=== PATIENT | male | born 2000 | race Caucasian/White ===

== ENCOUNTER 2023-10-31 23:49 | Observation (INO) | payer BC, OTHER ==
--- NOTE | 2023-11-01 00:19 | ED ---
Chest Pain HPI - General Chief Complaint: Chest Pain Stated Complaint: Chest Pain Time Seen by Provider: 11/01/23 00:17 Source: patient, RN notes reviewed Mode of arrival: ambulatory Limitations: no limitations - History of Present Illness Initial Comments: 23-year-old male with no significant past medical history presenting to the ER with chief complaint of chest pain x 1 hour. Patient describes pain as sharp and right sided. States pain came on suddenly. Pain is worse with deep inspiration. He has never had the symptoms before. Denies trauma or injury. Denies cough, nasal congestion, flulike symptoms. Denies family history of cardiac conditions. States he had an episode of syncope many years ago. - Related Data Allergies Allergy/AdvReac Type Severity Reaction Status Date / Time No Known Allergies Allergy Verified 10/31/23 23:54 Review of Systems ROS Statement: Those systems with pertinent positive or pertinent negative responses have been documented in the HPI. ROS Other: All systems not noted in ROS Statement are negative. EKG Findings - EKG Results: EKG: interpreted by MILTON (EKG reveals normal sinus rhythm with right bundle branch block and nonspecific ST changes in V2. Ventricular rate 95 bpm, CA interval 139, QRS duration 114, QT/QTc 345/397) Past Medical History Past Medical History: No Reported History History of Any Multi-Drug Resistant Organisms: None Reported Additional Past Surgical History / Comment(s): ear Past Psychological History: No Psychological Hx Reported Smoking Status: Vaper Past Alcohol Use History: Occasional Past Drug Use History: None Reported General Exam Limitations: no limitations General appearance: alert, in no apparent distress Head exam: Present: atraumatic, normocephalic, normal inspection Respiratory exam: Present: normal lung sounds bilaterally. Absent: respiratory distress, wheezes, rales, rhonchi, stridor, chest wall tenderness Cardiovascular Exam: Present: regular rate, normal rhythm, normal heart sounds. Absent: systolic murmur, diastolic murmur, rubs, gallop, clicks GI/Abdominal exam: Present: soft, normal bowel sounds. Absent: distended, tenderness, guarding, rebound, rigid Neurological exam: Present: alert, oriented X3 Psychiatric exam: Present: normal affect, normal mood Skin exam: Present: warm, dry, intact, normal color. Absent: rash Course Vital Signs 10/31/23 11/01/23 11/01/23 23:50 00:54 02:00 Temperature 97.3 F L Pulse Rate 96 86 73 Respiratory 15 17 17 Rate Blood Pressure 145/95 139/86 132/87 O2 Sat by Pulse 95 96 97 Oximetry Chest Pain MDM - MDM Was pt. sent in by a medical professional or institution (, [facility], [employer] MEMBER, urgent care, hospital, or skilled nursing...) When possible be specific @ -No Did you speak to anyone other than the patient for history (EMS, parent, family, police, friend...)? What history was obtained from this source @ -No Did you review nursing and triage notes (agree or disagree)? Why? @ -I reviewed and agree with nursing and triage notes Were old charts reviewed (outside hosp., previous admission, EMS record, old EKG, old radiological studies, urgent care reports/EKG's, skilled nursing records)? Report findings @ -No old charts were reviewed Differential Diagnosis (chest pain, altered mental status, abdominal pain women, abdominal pain men, vaginal bleeding, weakness, fever, dyspnea, syncope, headache, dizziness, GI bleed, back pain, seizure, CVA, palpatations, mental health, musculoskeletal)? @ -Differential Chest Pain: Stable Angina, Unstable Angina, STEMI, NSTEMI Aortic Dissection, Pneumothorax, Musculoskeletal, Esophageal Spasm GERD, Cholecystitis, Pancreatitis, Zoster, this is not meant to be an all-inclusive list. EKG interpreted by me (3pts min.). @ -As above X-rays interpreted by me (1pt min.). @ -Chest x-ray revealed no acute process CT interpreted by me (1pt min.). @ -None done U/S interpreted by me (1pt. min.). @ -None done What testing was considered but not performed or refused? (CT, X-rays, U/S, labs)? Why? @ -None What meds were considered but not given or refused? Why? @ -None Did you discuss the management of the patient with other professionals (professionals i.e. MARYANN Mack, [employer] MEMBER, lab, RT, psych nurse, social media project manager, plant floor automation manager, teacher, founder and chief technical officer, case briefer)? Give summary @ -No Was smoking cessation discussed for >3mins.? @ -No Was critical care preformed (if so, how long)? @ -No Were there social determinants of health that impacted care today? How? (Homelessness, low income, unemployed, alcoholism, drug addiction, transportation, low edu. Level, literacy, decrease access to med. care, fpc, rehab)? @ -No Was there de-escalation of care discussed even if they declined (Discuss DNR or withdrawal of care, Hospice)? DNR status @ -No What co-morbidities impacted this encounter? (DM, HTN, Smoking, COPD, CAD, Cancer, CVA, ARF, Chemo, Hep., AIDS, mental health diagnosis, sleep apnea, morbid obesity)? @ -None Was patient admitted / discharged? Hospital course, mention meds given and route, prescriptions, significant lab abnormalities, going to OR and other pertinent info. @ -Patient was admitted. This is a 23-year-old male presenting with sudden onset right-sided chest pain 1 hour prior to arrival. No cardiac risk factors. Vital signs within normal limits. Heart and lung sounds clear to auscultation bilaterally. No reproducible tenderness. Patient was given loading dose of aspirin. EKG revealed normal sinus rhythm with right bundle branch block and nonspecific ST changes in V2. Chest x-ray revealed no acute process. Lab work including CBC, CMP, coags, troponin are unremarkable. Repeat troponin pending. Discussed findings with patient including abnormal EKG. Patient admitted to observation for cardiology consultation. Patient is agreeable to plan. Case was discussed with my ED attending Dr. Pyle. Undiagnosed new problem with uncertain prognosis? @ -No Drug Therapy requiring intensive monitoring for toxicity (Heparin, Nitro, Insulin, Cardizem)? @ -No Were any procedures done? @ -No Diagnosis/symptom? @ -Chest pain Acute, or Chronic, or Acute on Chronic? @ -Acute Uncomplicated (without systemic symptoms) or Complicated (systemic symptoms)? @ -Uncomplicated Side effects of treatment? @ -No Exacerbation, Progression, or Severe Exacerbation? @ -No Poses a threat to life or bodily function? How? (Chest pain, USA, CA, pneumonia, PE, COPD, DKA, ARF, appy, cholecystitis, CVA, Diverticulitis, Homicidal, Suicidal, threat to staff... and all critical care pts) @ -Yes, chest pain Disposition Clinical Impression: Chest pain, Abnormal EKG Disposition: ADMITTED IP TO THIS HOSP Referrals: Alonzo Jefferson [Primary Care Provider] - 1-2 days Time of Disposition: 03:31
[2023-11-01] MEDS: ASPIRIN 81 MG PO STA (00:28)
[2023-11-01 00:31] LABS: Basophils % (A) 1 %; Eosinophils % (A) 1 %; HCT 46.7 % (39.0-53.0); HGB 16.1 gm/dL (13.0-17.5); Lymphocytes # (A) 2.3 k/uL (1.0-4.8); Lymphocytes % (A) 36 %; MCH 31.5 pg (25.0-35.0); MCHC 34.5 g/dL (31.0-37.0); MCV 91.4 fL (80.0-100.0); Mean Platelet Volume 8.7; Monocytes # (A) 0.3 k/uL (0-1.0); Monocytes % (A) 5 %; Neutrophils # (A) 3.5 k/uL (1.3-7.7); Neutrophils % (A) 55 %; Platelet Count 219 k/uL (150-450); RBC 5.11 m/uL (4.30-5.90); RDW 12.6 % (11.5-15.5); WBC 6.4 k/uL (3.8-10.6)
[2023-11-01 00:50] LABS: ALT 16 U/L (4-49); AST 29 U/L (17-59); African American GFR (CKD) >90 (>60 ml/min/1.73 sqM); Albumin 5.1 g/dL (3.5-5.0); Alkaline Phosphatase 60 U/L (38-126); Anion Gap 12 mmol/L; Blood Urea Nitrogen 17 mg/dL (9-20); Calcium 10.2 mg/dL (8.4-10.2); Carbon Dioxide 24 mmol/L (22-30); Chloride 101 mmol/L (98-107); Glucose 106 mg/dL (74-99); Non-African American GFR(CKD) 85 (>60 ml/min/1.73 sqM); Potassium 3.5 mmol/L (3.5-5.1); Sodium 137 mmol/L (137-145); Total Bilirubin 0.5 mg/dL (0.2-1.3); Total Protein 7.8 g/dL (6.3-8.2)
[2023-11-01 00:52] LABS: Partial Thromboplastin Time 26.3 sec (22.0-30.0); Prothrombin Time 10.7 sec (10.0-12.5)
--- NOTE | 2023-11-01 00:56 | XR ---
EXAMINATION TYPE: XR chest 2V DATE OF EXAM: 11/01/2023 COMPARISON: NONE HISTORY: Right-sided chest pain. TECHNIQUE: Frontal and lateral views of the chest are obtained. FINDINGS: There is no focal air space opacity, pleural effusion, or pneumothorax seen. The cardiac silhouette size is within normal limits. The osseous structures are intact. IMPRESSION: No acute cardiopulmonary process. [facility], , 11/01/2023 12:54 AM
[2023-11-01] MEDS ORDERED: ACETAMINOPHEN TAB 325 MG TAB PO PRN (03:26)
[2023-11-01] MEDS ORDERED: NALOXONE 0.4 MG/ML 1 ML VIAL IV PRN (03:26)
[2023-11-01] MEDS ORDERED: MORPHINE SULFATE 4 MG/ML SYRINGE IV PRN (03:26)
[2023-11-01] MEDS ORDERED: KETOROLAC 15 MG/ML 1 ML VIAL IVP PRN (03:26)
[2023-11-01 08:24] VITALS: RESP 17
--- NOTE | 2023-11-01 09:34 | P.CRDCN ---
History of Present Illness History of present illness: This is Dr. Wang dictating a consult on this patient The patient was interviewed and examined IMPRESSION / ASSESSMENT: 23-year-old male patient with pleuritic right-sided chest discomfort that lasted for about 45 minutes. No recent trauma no viral infection Improved slowly after 325 of aspirin No family history of premature or cardiac disease Denies any alcohol nicotine products use or any drug use The EKG from the ER shows sinus mechanism Q waves in leads I and aVL with T wave inversions. It also shows a type II Brugada pattern in leads V1 and V2. I have seen this EKG abnormality and this may represent a fault in the EKG machine Repeat twelve-lead EKGs on [facility]. by me personally I could not reproduce the abnormality in leads I and aVL. There is no Q wave not on the T wave inversions in leads I and aVL More importantly I could NOT reproduce the Brugada abnormality in the precordial leads in the standard position, third intercostal space position or second intercostal space position The repeat twelve-lead EKG does show QRS fractionation in leads V1 and lead III and perhaps an aVF PLAN: D-dimer 2D echo and Doppler study to assess cardiac structure and function particularly the right ventricle Urine tox screen If these are normal and the patient has no arrhythmias ambulating around in the hallways he may be discharged home and 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 He will take a deep breath and he would experience right- sided chest discomfort. He was admitted to [facility]. despite a normal troponin because his EKG was abnormal and showed abnormal ST segments in leads V1 and V2 as well as Q waves in leads I and aVL with T wave inversion He is asymptomatic at this time. The pain lasted for about 45 minutes ROS: No fever chills or rigors, no cough, phlegm or expectoration, no nausea, vomiting or diarrhea, no hematuria, dysuria, no musculoskeletal complaints, no strokes or seizures, no skin lesions. EXAMINATION: On examination blood pressure is 121/59 mmHg pulse rate in the 70s afebrile Normal heart sounds no murmurs no gallop no rub Clear lungs no rhonchi no crackles REVIEW OF LABS, ECG & MEDICAL DATA White count 6.4 thousand, hematocrit 46.7 normal hemoglobin 16 D-dimer pending Creatinine normal 1.2 Troponins normal Past Medical History Past Medical History: No Reported History History of Any Multi-Drug Resistant Organisms: None Reported Additional Past Surgical History / Comment(s): ear Past Psychological History: No Psychological Hx Reported Smoking Status: Vaper Past Alcohol Use History: Occasional Past Drug Use History: None Reported Medications and Allergies Home Medications Medication Instructions Recorded Confirmed Type No Known Home Medications 11/01/23 11/01/23 History Allergies Allergy/AdvReac Type Severity Reaction Status Date / Time No Known Allergies Allergy Verified 11/01/23 07:16 Physical Exam Vitals: Vital Signs Temp Pulse Pulse Resp BP BP Pulse Ox 11/01/23 07:30 98.1 F 76 17 141/80 100 11/01/23 06:22 98.3 F 81 18 141/90 100 11/01/23 05:04 71 17 121/59 95 11/01/23 02:00 73 17 132/87 97 11/01/23 00:54 86 17 139/86 96 10/31/23 23:50 97.3 F L 96 15 145/95 95 Intake and Output 10/31/23 11/01/23 11/01/23 22:59 06:59 14:59 Intake Total 0 590 Balance 0 590 Intake: Oral 0 590 Other: # Voids 1 Weight 72.575 kg Results 11/01/23 00:21 11/01/23 00:21 Cardiac Enzymes 11/01/23 11/01/23 11/01/23 Range/Units 00:21 00:21 03:15 AST 29 (17-59) U/L Troponin I <0.012 <0.012 (0.000-0.034) ng/mL Coagulation 11/01/23 Range/Units 00:21 PT 10.7 (10.0-12.5) sec APTT 26.3 (22.0-30.0) sec CBC 11/01/23 Range/Units 00:21 WBC 6.4 (3.8-10.6) k/uL RBC 5.11 (4.30-5.90) m/uL Hgb 16.1 (13.0-17.5) gm/dL Hct 46.7 (39.0-53.0) % Plt Count 219 (150-450) k/uL Comprehensive Metabolic Panel 11/01/23 Range/Units 00:21 Sodium 137 (137-145) mmol/L Potassium 3.5 (3.5-5.1) mmol/L Chloride 101 (98-107) mmol/L Carbon Dioxide 24 (22-30) mmol/L BUN 17 (9-20) mg/dL Creatinine 1.20 (0.66-1.25) mg/dL Glucose 106 H (74-99) mg/dL Calcium 10.2 (8.4-10.2) mg/dL AST 29 (17-59) U/L ALT 16 (4-49) U/L Alkaline Phosphatase 60 (38-126) U/L Total Protein 7.8 (6.3-8.2) g/dL Albumin 5.1 H (3.5-5.0) g/dL Current Medications Generic Name Dose Route Start Last Admin Trade Name Freq PRN Reason Stop Dose Admin Acetaminophen 650 mg 11/01/23 03:26 Acetaminophen Tab 325 Mg Tab PO Q6HR PRN Mild Pain or Fever > 100.5 Ketorolac Tromethamine 15 mg 11/01/23 03:26 Ketorolac 15 Mg/Ml 1 Ml Vial IVP 11/04/23 03:27 Q6HR PRN Moderate Pain (Scale 4 to 6) Morphine Sulfate 4 mg 11/01/23 03:26 Morphine Sulfate 4 Mg/Ml Syringe IV Q4HR PRN Severe Pain (Scale 7 to 10) Naloxone HCl 0.2 mg 11/01/23 03:26 Naloxone 0.4 Mg/Ml 1 Ml Vial IV Q2M PRN Opioid Reversal Pantoprazole Sodium 40 mg 11/01/23 09:15 Pantoprazole 40 Mg/10 Ml Vial IVP BID TANIA Intake and Output 10/31/23 11/01/23 11/01/23 22:59 06:59 14:59 Intake Total 0 590 Balance 0 590 Intake: Oral 0 590 Other: # Voids 1 Weight 72.575 kg 11/01/23 00:21 11/01/23 00:21
[2023-11-01] MEDS: PANTOPRAZOLE 40 MG/10 ML VIAL IVP SCH (10:33)
[2023-11-01 13:07] VITALS: BP 137/62; PULSE 105; TEMP 98.5
--- NOTE | 2023-11-01 13:49 | HP ---
HISTORY AND PHYSICAL This is a combined history and physical and discharge summary. CHIEF COMPLAINT: Chest pain. HISTORY OF PRESENT ILLNESS: This is a 23-year-old gentleman with a past medical history of no significant medical issues except vaping, was admitted with chest pain, which was mostly right-sided, sharp in character. The initial cardiac workup was negative except an incomplete right bundle branch block in EKG. Cardiology had seen the patient and a 2D echo showed some mild inflammation per the verbal information confirmed by Cardiology and the patient will be discharged in stable condition with guarded prognosis. Further plans to follow up with Dr. Wang from Cardiology as well as Dr. Jefferson, the primary physician. There is no history of any fever, rigors, or chills at this time. PAST MEDICAL HISTORY: History of vaping. MEDICATIONS: None. ALLERGIES: None. FAMILY HISTORY: No history of heart disease or strokes in the family. SOCIAL HISTORY: As mentioned. REVIEW OF SYSTEMS: Fourteen-point review is negative except as mentioned earlier. PHYSICAL EXAMINATION: VITAL SIGNS: Pulse is 81, blood pressure 141/90, respirations 18. HEENT: Conjunctivae normal. NECK No JVD. CARDIOVASCULAR: Breath sounds diminished at the bases. No rhonchi. No crackles. ABDOMEN: Soft, nontender. LEGS: No edema. NERVOUS SYSTEM: Nonfocal. SKIN: No ulcer, rash, bleeding. JOINTS: No active deforming arthropathy. LABORATORY DATA: Noted. D-dimer is negative. ASSESSMENT: 1. Chest pain possibly pleuritic, possible mild pericarditis per 2D echo per Cardiology. 2. Incomplete right bundle-branch block in EKG. 3. History of vaping. RECOMMENDATIONS: This is a 23-year-old gentleman, who presented with chest pain. At this time, the patient is medically stable. I recommend the patient be discharged. Follow up with primary physician in the outpatient setting, as well as Cardiology, otherwise limited activity recommended at this time. We will follow the patient closely. Recommended to stop vaping also. MMODL / IJN: [id number] /
== END 2023-11-01 13:28 | disposition home or self-care (01) ==
LOC: EC 23:49 → 6NMEDSUR 11-01 04:27
PROVIDERS: ADMIT Internal Medicine; ATTEND Internal Medicine
DX: R07.89 Other chest pain (principal); I45.10 Unspecified right bundle-branch block; R94.31 Abnormal electrocardiogram [ECG] [EKG]; F17.290 Nicotine dependence, other tobacco product, uncomplicated
CPT/HCPCS: 36415; 71046; 80053; 84484; 85025; 85379; 85610; 85730; 93005; 93306; 96374; 99285